=== PATIENT | male | born 1975 | race Caucasian/White ===

== ENCOUNTER 2016-07-17 07:57 | Emergency (ER) | payer BC | END 2016-07-17 11:39 | disposition home or self-care (01) | LOC: ER 07:57 | DX: N13.2 Hydronephrosis with renal and ureteral calculous obstruction (principal); I10 Essential (primary) hypertension; Z88.0 Allergy status to penicillin | CPT/HCPCS: 96361; 96374; 96375; 96376; J1885 ==

== ENCOUNTER → 2016-07-24 | Day surgery (SDC) | payer BC | END | disposition home or self-care (01) | LOC: SDC 10:43 | DX: N20.2 Calculus of kidney with calculus of ureter (principal); I10 Essential (primary) hypertension; K21.9 Gastro-esophageal reflux disease without esophagitis; Z79.899 Other long term (current) drug therapy; Z88.0 Allergy status to penicillin | CPT/HCPCS: C1758; C1894; C2617; J1885; J2704; Q9967 ==